=== PATIENT | female | born 1935 | race Caucasian/White ===

== ENCOUNTER → 2016-07-24 | Day surgery (SDC) | payer OTHER ==
[~2016-07-24] MED LIST: ATENOLOL PO; ATIVAN PO; BACLOFEN10 MG PO; FLONASE 0.05% N16 G1; LOSARTAN-HCTZ1 EACH PO; MULTI VITAMIN1 EACH PO; OXYCONTIN10 MG PO; REQUIP2 MG PO; RESTASIS1 EACH OU; VITAMIN D31000 UNIT PO; ZYRTEC10 M1 PO
--- NOTE | ~2016-07-24 | OR ---
Unit #: [id number] #: [id number] Patient: DALILA OLSON [id number] [address] [place], [place] [address] [id number] O MR#: [id number] NAME: DALILA OLSON. ROOM: Date of Procedure: 07/24/2016 Admission Date: 07/24/2016 Surgeon: Raheem Oliveros M.D. : 1935 Attending Physician: Raheem Oliveros M.D. Primary Care Physician: Generic Doctor Not In System OPERATIVE REPORT PREOPERATIVE DIAGNOSES 1. Back pain. 2. Radiculopathy. 3. Postlaminectomy syndrome. 4. Herniated nucleus pulposus. POSTOPERATIVE DIAGNOSES 1. Back pain. 2. Radiculopathy. 3. Postlaminectomy syndrome. 4. Herniated nucleus pulposus. PROCEDURE PERFORMED Lumbar epidural steroid injection with intravenous sedation and fluoroscopic guidance for needle localization. INDICATIONS FOR PROCEDURE The patient is a 80-year-old female with worsening back and left lower extremity pain. She has a total of 3 back surgeries. Workup demonstrated a new left-sided L4-L5 disk herniation with S1 nerve root compromise and also has fairly significant disease at L3-L4 levels, disk collapse, and broad-based disk osteophyte complex. The patient failed to settle with attempts of conservative management. So, plan is for trial of epidural steroid injection. Risks and benefits of all have been reviewed. We are going to try translaminar approach. If this is not successful, transforaminal may be better with her pathology. DESCRIPTION OF PROCEDURE The patient was placed in the seated position. Standard monitors were applied. 2 mg of Versed were given for sedation and anxiolysis, which were adequate. Vital signs remained stable. Sterile prep and drape then of the lumbar area was performed. The skin then at the L5-S1 level was localized with 1% lidocaine. An 18-gauge Skyrobotictead needle was then advanced via loss of resistance technique and fluoroscopic guidance in toward the epidural space. The patient did not complain of pain or paresthesia during needle advancement. After confirming proper positioning with fluoroscopy and radiographic contrast, 80 mg of Depo-Medrol and 4 mL of 0.125% bupivacaine were deposited. The patient tolerated the procedure otherwise well and was discharged to the recovery room in stable condition. Dictated by... Unit #: [id number] #: [id number] Patient: WHITNEYDALILA M.D. LHP/rafa TD: 07/24/2016 23:17 JOB #: [id number] OPERATIVE REPORT X Raheem Oliveros MD X PROCEDURE OPERATIVE NOTE
== END | disposition home or self-care (01) ==
LOC: CCSC 08:16
DX: M96.1 Postlaminectomy syndrome, not elsewhere classified (principal); M51.16 Intervertebral disc disorders with radiculopathy, lumbar region; I10 Essential (primary) hypertension; K21.9 Gastro-esophageal reflux disease without esophagitis; Z86.73 Personal history of transient ischemic attack (TIA), and cerebral infarction without residual deficits; Z87.19 Personal history of other diseases of the digestive system; Z98.890 Other specified postprocedural states
CPT/HCPCS: J1040; J2250

== ENCOUNTER → 2016-12-04 | Day surgery (SDC) | payer OTHER ==
--- NOTE | ~2016-12-04 | OR ---
Unit #: [id number] #: [id number] Patient: DALILA OLSON [id number] [address] [place], [place] [address] [id number] O MR#: [id number] NAME: DALILA OLSON ROOM: Date of Procedure: 12/04/2016 Admission Date: 12/04/2016 Surgeon: Raheem Oliveros M.D. : 1935 Attending Physician: Raheem Oliveros M.D. Primary Care Physician: Generic Doctor Not In System OPERATIVE REPORT PREOPERATIVE DIAGNOSES Postlaminectomy syndrome, lumbar disk herniation, radiculopathy. POSTOPERATIVE DIAGNOSES Postlaminectomy syndrome, lumbar disk herniation, radiculopathy. PROCEDURE PERFORMED Transforaminal epidural steroid injection with intravenous sedation and fluoroscopic guidance for needle localization. INDICATIONS FOR PROCEDURE The patient is an 81-year-old female with significant back and left lower extremity pain. She failed to settle with conservative treatment. She has had 3 prior back surgeries. Workup was demonstrated a left-sided L5-S1 disk herniation compressing the left S1 nerve root, at the L3-L4 level also has disk collapse with degenerative disk disease, advanced facet disease, and moderately severe spinal and neuroforaminal stenosis worsened left than the right. Translaminar epidural steroid injection done in July did not help, left L5-S1 herniation, so the plan is for trial of a transforaminal injection more specifically address the left disk herniation at L5-S1. DESCRIPTION OF PROCEDURE The patient was placed in a prone position. Standard monitors were applied. 2 mg of Versed were given for sedation and anxiolysis, which were adequate. Vital signs remained stable. Sterile prep and drape then of the lumbar area was performed. The skin to the left of midline at the L5 level was localized with 1% lidocaine. A long 22-gauge Quincke point spinal needle was then advanced with biplanar fluoroscopic guidance to bring the needle tip to within the edge of the left L5-S1 neural foramina. The patient had mild paresthesia, which resolved with manipulation of the needle. After confirming proper positioning with fluoroscopy and radiographic contrast, a dose of 80 mg of Depo-Medrol and 1 mL of 0.25% bupivacaine were deposited. The patient tolerated the procedure otherwise well and was discharged to the recovery room in stable condition. Dictated by... Raheem Oliveros M.D. Unit #: [id number] #: [id number] Patient: DALILA OLSON TYESHA/rafa TD: 12/04/2016 11:55 JOB #: [id number] OPERATIVE REPORT Page 1 of 1 X Raheem Oliveros MD X PROCEDURE OPERATIVE NOTE
== END | disposition home or self-care (01) ==
LOC: CCSC 08:03
DX: M96.1 Postlaminectomy syndrome, not elsewhere classified (principal); M51.17 Intervertebral disc disorders with radiculopathy, lumbosacral region; M51.16 Intervertebral disc disorders with radiculopathy, lumbar region; I10 Essential (primary) hypertension; K21.9 Gastro-esophageal reflux disease without esophagitis; Z86.73 Personal history of transient ischemic attack (TIA), and cerebral infarction without residual deficits; Z79.899 Other long term (current) drug therapy
CPT/HCPCS: J1040; J2250